=== PATIENT | female | born 1965 | race Caucasian/White ===

== ENCOUNTER → 2016-06-05 | Outpatient (CLI) | payer OTHER ==
[~2016-06-05] MED LIST: CALCIUM; MULT1CAP27; OMG1KC
--- OUTSIDE RECORDS SUMMARY | 2016-06-05 15:44 | XMS REPORT | Continuity of Care Document ---
Author Author [facility] Organization [facility] Address Unknown Phone Unavailable Allergies Active Description Code Type Severity Reaction Onset Reported/Identified Relationship to Patient Clinical Status Yes No Known Drug Allergies [id number] Drug Allergy Unknown N/ A 08/04/2010 Medications Problems Date Dx Coded Attending Type Code Diagnosis Diagnosed By 08/04/2010 Ot 883.0 08/04/2010 Ot E000.0 08/04/2010 Ot E849.7 08/04/2010 Ot E920.4 12/10/2011 Ot 625.8 05/17/2014 Ot V76.12 05/17/2014 Ot V76.12 05/17/2014 Ot V76.12 05/17/2014 Ot 285.9 05/17/2014 Ot 625.8 05/17/2014 Ot V72.63 05/17/2014 Ot V74.8 05/17/2014 Ot V76.12 05/17/2014 RACHELL SPRAGUE, PALMIRA Vargas Ot V76.12 06/02/2014 RACHELL SPRAGUE, PALMIRA Vargas Ot V76.12 01/09/2015 BRITTANY SPRAGUE, REVIN Weston Ot 535.40 01/09/2015 BRITTANY SPRAGUE, ERVIN Weston Ot 553.3 01/09/2015 BRITTANY SPRAGUE, ERVIN Weston Ot 562.10 01/09/2015 BRITTANY SPRAGUE, ERVIN Weston Ot 569.0 01/09/2015 ERVIN SOTO MD Ot V76.51 05/30/2015 Ot V76.12 05/30/2015 Ot V76.12 05/30/2015 Ot 285.9 05/30/2015 Ot 625.8 05/30/2015 Ot V72.63 05/30/2015 Ot V74.8 05/30/2015 Ot V76.12 05/30/2015 RACHELL SPRAGUE, PALMIRA Vargas Ot V76.12 05/30/2015 RACHELL SPRAGUE, PALMIRA Vargas Ot V76.12 05/30/2015 ERVIN SOTO MD Ot 787.20 05/30/2015 ERVIN SOTO MD Ot V72.84 05/30/2015 ERVIN SOTO MD Ot V76.51 Procedures Results Encounters ACCT No. Visit Date/Time Discharge Status Pt. Type Provider Facility Loc./Unit Complaint [id number] 01/09/2015 08:42:00 2014 11:35:00 [id number] 01/08/2015 05:36:00 2014 23:59:59 CLS Outpatient ERVIN SOTO MD [facility] PREOP [id number] 05/17/2014 10:45:00 2014 23:59:59 CLS Outpatient PALMIRA LOVETT MD [facility] RAD [id number] 02/17/2013 14:50:00 2012 23:59:59 CLS Outpatient PALMIRA LOVETT MD [facility] RAD [id number] 05/30/2015 10:11:00 ACT Outpatient PALMIRA LOVETT MD [facility] RAD [id number] 02/18/2012 11:08:00 Document Registration [id number] 12/10/2011 05:47:00 Document Registration [id number] 12/05/2011 15:35:00 Document Registration [id number] 01/30/2011 15:11:00 Document Registration [id number] 08/04/2010 19:16:00 Document Registration [id number] 2010 13:13:00 Document Registration [id number] 01/10/2009 14:30:00 Document Registration
--- NOTE | 2016-06-06 11:45 | Diagnostic Imaging Report ---
Bilateral screening mammogram. The current study was also evaluated with a Computer Aided Detection (CAD) system. INDICATION: Screening. No current complaints stated on the questionnaire. COMPARISON: 05/30/2015. FINDINGS: The breasts are composed of heterogeneously dense parenchyma which may decrease mammographic sensitivity. There is no mass, architectural distortion, or suspicious cluster of calcification. Allowing for technique and positional differences, no suspicious change is seen. IMPRESSION: Dense breasts with no definite change. ACR BI-RADS Category 2: Benign findings. Result letter will be mailed to the patient. Note: At least 10% of breast cancer is not imaged by mammography. Dictated by: Dictated on workstation # [id number]
== END ==
LOC: RAD 15:41
PROVIDERS: ATTEND Obstetrics & Gynecology
DX: Z12.31 Encounter for screening mammogram for malignant neoplasm of breast (principal)
CPT/HCPCS: 77067

== ENCOUNTER → 2017-06-10 | Outpatient (CLI) | payer OTHER ==
--- NOTE | 2017-06-10 10:08 | Diagnostic Imaging Report ---
INDICATION: Routine screening. COMPARISON: 06/05/2016 and 05/30/2015. TECHNIQUE: Screening digital mammography was performed bilaterally with a Computer Aided Detection (CAD) system. FINDINGS: Both breasts are heterogeneously dense, limiting the sensitivity of mammography. The parenchymal pattern is stable. No dominant mass or malignant appearing microcalcifications are seen. The axillae are unremarkable IMPRESSION: No mammographic features suspicious for malignancy are identified. ACR BI-RADS Category 2: Benign findings. Result letter will be mailed to the patient. Note: At least 10% of breast cancer is not imaged by mammography. Dictated by: Dictated on workstation # [id number]
== END ==
LOC: RAD 08:58
PROVIDERS: ATTEND Obstetrics & Gynecology
DX: Z12.31 Encounter for screening mammogram for malignant neoplasm of breast (principal)
CPT/HCPCS: 77067

== ENCOUNTER → 2018-06-15 | Outpatient (CLI) | payer OTHER ==
--- NOTE | 2018-06-16 18:14 | Diagnostic Imaging Report ---
EXAMINATION: Digital Mammogram bilateral screening with 3D tomosynthesis and computer-aided detection (CAD) system. INDICATION: Screening. COMPARISON: This study was compared to the prior exams of 06/10/2017, 06/05/2016, and 05/30/2015. At this time, there are no current complaints. FINDINGS: The fibroglandular tissue in both breasts is heterogeneously dense. This does limit the sensitivity of this exam. On the MLO view of the left breast in the mid portion of the breast, there is a suggestion of architectural distortion. This finding is not as striking on the tomographic views. Even so, I would recommend that a compression view of this portion of the left breast be obtained in the MLO projection as well as a true lateral view for further study. Ultrasound should also be performed. The right breast is unchanged. IMPRESSION: Additional mammographic views and ultrasound of the left breast would be recommended for further study. ACR BI-RADS Category 0: Incomplete. (Needs additional imaging evaluation). Result letter will be mailed to the patient. Note: At least 10% of breast cancer is not imaged by mammography. Dictated by: Dictated on workstation # [id number]
== END ==
LOC: RAD 15:19
PROVIDERS: ATTEND Obstetrics & Gynecology
DX: Z12.31 Encounter for screening mammogram for malignant neoplasm of breast (principal)
CPT/HCPCS: 77067

== ENCOUNTER → 2018-06-23 | Outpatient (CLI) | payer OTHER ==
--- NOTE | 2018-06-23 20:57 | Diagnostic Imaging Report ---
INDICATION: Left breast architectural distortion. Patient presents for additional views. Correlation is made with prior exam from 06/15/2018. Unilateral left 2D and 3D diagnostic mammography was performed including spot compression, MLO, and conventional 90-degree lateral views. The current study was also evaluated with a Computer Aided Detection (CAD) system. FINDINGS: Additional views fail to demonstrate a discrete mass. No definite architectural distortion is identified. No suspicious calcifications are seen. IMPRESSION: No suspicious abnormality is seen. Even so, sonographic interrogation from the 3-9 clock location of the left breast retroareolar region is recommended and will be performed today. ACR BI-RADS Category 0: Incomplete. (Needs additional imaging evaluation). Result letter will be mailed to the patient. Note: At least 10% of breast cancer is not imaged by mammography. Dictated by: Dictated on workstation # [id number]
--- NOTE | 2018-06-23 21:07 | Diagnostic Imaging Report ---
INDICATION: Left breast asymmetry. Study is performed for further evaluation. Correlation is made with diagnostic mammogram earlier same day. FINDINGS: Sonographic interrogation of the retroareolar left breast was performed from 3 to 9 o'clock location. No sonographic abnormality is seen. No solid or cystic mass is detected. IMPRESSION: No sonographic abnormality is seen. The patient may return to routine annual screening mammography. ACR BI-RADS Category 1: Negative. Dictated by: Dictated on workstation # [id number]
== END ==
LOC: RAD 08:38
PROVIDERS: ATTEND Obstetrics & Gynecology
DX: N64.89 Other specified disorders of breast (principal)
CPT/HCPCS: 76642

== ENCOUNTER → 2018-08-02 | Outpatient (CLI) | payer OTHER ==
--- NOTE | 2018-08-02 15:31 | Diagnostic Imaging Report ---
PROCEDURE: MRI lumbar spine. TECHNIQUE: Multiplanar, multisequence MRI of the lumbar spine was performed without contrast. INDICATION: Low back pain and right leg pain. COMPARISON: No prior studies are available for comparison. FINDINGS: Curvature and alignment of the lumbar spine is normal. Vertebral body heights are maintained. No acute compression fracture or geographic marrow lesion is seen. There is fairly normal height and signal intensity to the lumbar intervertebral discs. Conus is unremarkable at the L1 level. T12-L1: No central canal or neural foraminal stenosis is detected. L1-2: Mild ligamentous thickening is present, but no central canal or neural foraminal narrowing is seen. L2-3: There is ligamentous thickening and facet changes, but central canal and neural foramina are widely patent. L3-4: Ligamentous thickening and facet changes are present, but central canal and neural foramina are patent. L4-5: There is ligamentous thickening and facet changes with some flattening of the ventral thecal sac. Central canal remains patent. Very mild narrowing of the neural foramina bilaterally due to broad-based disc/osteophyte complexes noted. L5-S1: Central canal and neural foramina are widely patent. Paraspinous tissues are unremarkable. IMPRESSION: Mild generalized lumbar spondylosis. There appears to be mild bilateral neural foraminal narrowing at the L4-5 level, as described. No central canal stenosis or evidence of acute compression fracture is identified. Dictated by: Dictated on workstation # [id number]
== END ==
LOC: RAD 14:42
PROVIDERS: ATTEND Orthopaedic Surgery
DX: M47.816 Spondylosis without myelopathy or radiculopathy, lumbar region (principal)
CPT/HCPCS: 72148

== ENCOUNTER → 2019-07-06 | Outpatient (CLI) | payer OTHER ==
--- NOTE | 2019-07-06 10:27 | Diagnostic Imaging Report ---
INDICATION: Routine screening. COMPARISON: 06/15/2018 and 06/10/2017. TECHNIQUE: 2D and 3D bilateral screening mammography was performed with CAD. FINDINGS: Both breasts remain heterogeneously dense, limiting the sensitivity of mammography. The overall parenchymal pattern appears to be stable. No mass or malignant appearing microcalcifications are seen. The axillae are unremarkable. IMPRESSION: No mammographic features suspicious for malignancy are identified. ACR BI-RADS Category 1: Negative. Result letter will be mailed to the patient. Note: At least 10% of breast cancer is not imaged by mammography. Dictated by: Dictated on workstation # [id number]
== END ==
LOC: RAD 08:39
PROVIDERS: ATTEND Obstetrics & Gynecology
DX: Z12.31 Encounter for screening mammogram for malignant neoplasm of breast (principal)
CPT/HCPCS: 77067

== ENCOUNTER → 2020-07-10 | Outpatient (CLI) | payer OTHER | LOC: RAD 15:15 | PROVIDERS: ATTEND Obstetrics & Gynecology | DX: Z12.31 Encounter for screening mammogram for malignant neoplasm of breast (principal) | CPT/HCPCS: 77063; 77067 ==

== ENCOUNTER 2021-02-20 05:29 | Outpatient (RCR) | payer OTHER ==
[~2021-02-20] VITALS: Ht 160 cm; Wt 66.8 kg
[~2021-02-20 05:29] MED LIST changes: +ATOR10TA PO; +ESTR1TAB27 PO; +PROG100C11 PO
== END 2021-02-20 13:28 | disposition home or self-care (01) ==
LOC: PREOP 05:29
PROVIDERS: ATTEND Internal Medicine
DX: Z01.812 Encounter for preprocedural laboratory examination (principal); Z20.822 Contact with and (suspected) exposure to COVID-19
CPT/HCPCS: 87635

== ENCOUNTER 2021-02-22 09:09 | Day surgery (SDC) | payer OTHER ==
--- NOTE | 2021-02-21 16:44 | HISTORY AND PHYSICAL ---
DATE OF SERVICE: COLONOSCOPY AND EGD HISTORY AND PHYSICAL HISTORY: The patient is a 56-year-old white female who has had 3 episodes of nausea over the past several months. Last episode was a week ago. On 2 of them, she does not recall association with eating, but on the one where she noted dysphagia to pill following it after breakfast that did contain some sausage at the hospital. With this, she will also have associated diarrhea. She has not been aware of any melena or bright red blood per rectum and has had no hematemesis. Her nausea tends to resolve within an hour. She denies any heartburn type symptoms. Currently, she had undergone one other EGD, did reveal hiatal hernia without evidence for erosive esophagitis 7 years ago, has had no subsequent procedures. Her last colonoscopy, which revealed one hyperplastic polyp removed from the rectum and mild diverticular disease. PHYSICAL EXAMINATION: GENERAL: Reveals a white female, appears to be in no acute distress. HEENT: Unremarkable. VITAL SIGNS: Blood pressure 120/90 at the beginning of the interview, 118/76 at the end. HEENT: Unremarkable. Sclerae nonicteric. CHEST: Clear. CARDIOVASCULAR: Regular rate and rhythm without murmur, S3 or S4. ABDOMEN: Soft, supple. Mild epigastric discomfort to palpation is present without rebound or guarding. No right upper quadrant pain to palpation is noted. Harrison sign is negative. No other areas of tenderness noted in the abdomen. Bowel sounds positive. EXTREMITIES: Reveal no cyanosis, clubbing or edema. ASSESSMENT AND PLAN: For further investigation of epigastric pain and dysphagia with some nausea and vomiting, the patient is being set up for diagnostic EGD. Due to diarrhea and past polyp, the patient is being set up for colonoscopy. Prep instructions with Suprep kit were given and questions answered. Job ID: [id number] DocumentID: [id number] Dictated Date: 02/13/2021 15:37:57 Referral Specialist Date: 02/13/2021 16:16:43 Dictated By: ERVIN SOTO MD
[~2021-02-22] VITALS: Ht 160 cm; Wt 66.8 kg
[2021-02-22] VITALS (7 sets, daily range): BP systolic 122–155; BP diastolic 66–84
[2021-02-22] MEDS ORDERED: LACTATED RINGERS 1,000 ML IV ONE (09:23)
[2021-02-22] MEDS ORDERED: LACTATED RINGERS 1,000 ML IV STA (09:38)
[2021-02-22] MEDS ORDERED: HURRICAINE EXT TUBE (BENZOCAINE) XX PRN (09:45)
[2021-02-22] MEDS ORDERED: LIDOCAINE JELLY 2% 6 ML SYRINGE MM PRN (09:45)
[2021-02-22] MEDS ORDERED: proPOfol 200 MG/20 ML (DIPRIVAN) VIAL IV ONE ×2 (10:07→10:50)
[2021-02-22] MEDS ORDERED: MIDAZOLAM 2 MG/2 ML (VERSED) VIAL ONE (10:07)
--- NOTE | 2021-02-22 13:09 | Anesthesia-General Post-Op ---
MAC Patient Condition Mental Status/LOC: Same as Preop Cardiovascular: Satisfactory Nausea/Vomiting: Absent Respiratory: Satisfactory Pain: Controlled Complications: Absent Post Op Complications Complications None Follow Up Care/Instructions Patient Instructions None needed. Anesthesiology Discharge Order Discharge Order Patient is doing well, no complaints, stable vital signs, no apparent adverse anesthesia problems. No complications reported per nursing. ELVIN GOLDBERG CRNA Feb 22, 2021 13:09
--- NOTE | 2021-02-22 18:56 | OPERATIVE REPORT ---
DATE OF SERVICE: PANENDOSCOPY SUMMARY INDICATION FOR THE PROCEDURE: Panendoscopy was performed for evaluation of intermittent nausea with dysphagia with a screening colonoscopy. DESCRIPTION OF PROCEDURE: The patient was placed in the left lateral decubitus position. The endoscope was inserted in the oral cavity and under direct visualization, esophagus was intubated. The endoscope was passed down the esophagus through stomach and second portion of the duodenum. A careful inspection was made as the endoscope was withdrawn. FINDINGS: Proximal, mid and distal esophagus were unremarkable except for the fact that there is a small hiatal hernia present with patency of the lower esophageal sphincter. The Z line is distinct. There is no evidence to suggest Sanford's change. No evidence for erosive esophagitis or obstruction. The cardia of the stomach was unremarkable. Several small fundal polyps were noted. There were some linear antral erythema without erosion or ulceration noted. A biopsy was obtained and submitted for Helicobacter and histopathology evaluation. The pylorus, pyloric channel, duodenal bulb and second portion of the duodenum as well as ampulla were unremarkable. ASSESSMENT: Small hiatal hernia is present with evidence for lower esophageal sphincter laxity. There is no evidence for erosive esophagitis or obstruction. Mild antral erythema was present. Biopsies are pending for Helicobacter and histopathology. Several small fundal appearing polyps were noted in an individual who has been on chronic proton pump inhibitor therapy. No other abnormalities noted on today's upper endoscopy. Prior to undergoing colonoscopy, digital rectal evaluation was performed. Anal sphincter tone was normal and the perianal reflexes intact. No abnormalities were noted on digital inspection of anal canal or distal rectal vault. The colonoscope was then inserted into the rectum and under direct visualization advanced to cecum. The cecum was identified by identification of ileocecal valve and cecal strap. Photographic documentation was obtained. Quality of prep was good. FINDINGS: There was no evidence for internal or external hemorrhoids and the rectum was unremarkable. Present at the rectosigmoid junction was a diminutive hyperplastic-appearing polyp. It was biopsied and submitted for histopathology. Present in the distal sigmoid colon was a similar polyp that was removed, but not submitted. Several small sigmoid diverticulum were present without evidence for diverticulitis. The descending colon, splenic flexure, transverse colon, hepatic flexure, ascending colon and cecum were unremarkable. ASSESSMENT: 1. Mild diverticular disease confined to the sigmoid colon was present without evidence for diverticulitis. 2. One diminutive hyperplastic-appearing polyp was removed from the rectosigmoid junction. As long as there are no surprise on histopathology report, would advocate consideration for repeat surveillance colonoscopy in 10 years. Job ID: [id number] DocumentID: [id number] Dictated Date: 02/22/2021 12:23:37 Utility Tech Date: 02/22/2021 18:54:20 Dictated By: ERVIN SOTO MD
--- NOTE | 2021-02-26 15:49 | Physician Query Clarification ---
YOSELIN BERNAL 02/26/21 1549: [id number] Proc Desc BodyOP Admission Canned Text Admission Date: Discharge Date: Procedures Procedures Performed Colonoscopy-biopsy of rectosigmoid polyp, sigmoid polyp removed but not sent to path Body of the Operative/Procedure Report: There is no detailed documentation specifying a manner in which second polyp was removed. Contract Engineer Note Note From Contract Engineer Please remember a lack of response to the above will prompt a phone page by CDI/Coding staff. In responding to this query, please exercise your independent professional judgment. The purpose of this communication is to more accurately reflect the complexity of your patients condition. The fact that a question is asked does not imply that any particular answer is desired or expected. Thank you for your timely response to this clarification. Requestors name: Yoselin THIS PHYSICIAN QUERY FORM IS A PERMANENT PART OF THE MEDICAL RECORD ERVIN SOTO MD 02/28/21 1728: [id number] Proc Desc BodyOP Physician Response Details: Detailed desc below Explanation Clinical Findings Removed via cold biopsy forceps YOSELIN BERNAL Feb 26, 2021 15:49 ERVIN SOTO MD Feb 28, 2021 17:28
== END 2021-02-22 12:40 | disposition home or self-care (01) ==
LOC: ENDO 09:09
PROVIDERS: ATTEND Internal Medicine
DX: Z12.11 Encounter for screening for malignant neoplasm of colon (principal); K62.1 Rectal polyp; K57.30 Diverticulosis of large intestine without perforation or abscess without bleeding; K63.5 Polyp of colon; K44.9 Diaphragmatic hernia without obstruction or gangrene; K31.7 Polyp of stomach and duodenum

== ENCOUNTER → 2021-07-12 | Outpatient (CLI) | payer OTHER ==
--- NOTE | 2021-07-15 08:41 | Diagnostic Imaging Report ---
INDICATION: Routine screening. Comparison is made prior mammogram 07/10/2020 and 07/06/2019. 2-D and 3-D bilateral screening mammography was performed with CAD. Both breasts are heterogeneously dense, limiting the sensitivity of mammography. The parenchymal pattern is stable. No mass or malignant-appearing microcalcifications are seen. Occasional benign calcifications are noted. Axillae are unremarkable. IMPRESSION: No mammographic features suspicious for malignancy are identified. ACR BI-RADS Category 2: Benign findings. Result letter will be mailed to the patient. Note: At least 10% of breast cancer is not imaged by mammography. BI-RADS Category 2 Dictated by: Dictated on workstation # [id number]
== END ==
LOC: RAD 15:00
PROVIDERS: ATTEND Obstetrics & Gynecology
DX: Z12.31 Encounter for screening mammogram for malignant neoplasm of breast (principal)
CPT/HCPCS: 77063; 77067

== ENCOUNTER 2021-08-26 05:32 | Outpatient (CLI) | payer OTHER ==
[~2021-08-26] VITALS: Ht 160 cm; Wt 65.9 kg
[2021-08-26] MEDS ORDERED: FAMO10TA43 PO (13:14)
[2021-08-26] MEDS ORDERED: FERR325T18 PO (13:14)
== END 2021-08-26 13:17 ==
LOC: PREOP 05:32
PROVIDERS: ATTEND Obstetrics & Gynecology
DX: Z01.812 Encounter for preprocedural laboratory examination (principal); N95.0 Postmenopausal bleeding

== ENCOUNTER 2021-09-02 07:24 | Day surgery (SDC) | payer OTHER ==
[~2021-09-02] VITALS: Ht 160 cm; Wt 65.9 kg
[2021-09-02] VITALS (11 sets, daily range): BP systolic 127–139; BP diastolic 72–94
[~2021-09-02 07:24] MED LIST changes: +FAMO10TA43 PO; +FERR325T18 PO
[2021-09-02] MEDS ORDERED: BUPIVACAINE 0.25% 10 ML (SENSORCAINE) VIAL ONE (07:29)
[2021-09-02] MEDS: LACTATED RINGERS 1,000 ML IV PRN ×2 (07:50→09:15)
[2021-09-02 08:04] LABS: BASOPHILS # (AUTO) 0.1 10^3/uL (0.0-0.1); BASOPHILS % (AUTO) 1 % (0-10); EOSINOPHILS # (AUTO) 0.1 10^3/uL (0.0-0.3); EOSINOPHILS % (AUTO) 1 % (0-10); HEMATOCRIT 42 % (35-52); HEMOGLOBIN 13.5 g/dL (11.5-16.0); LYMPHOCYTES # (AUTO) 1.4 10^3/uL (1.0-4.0); LYMPHOCYTES % (AUTO) 20 % (12-44); MEAN CORPUSCULAR HEMOGLOBIN 28 pg (25-34); MEAN CORPUSCULAR HGB CONC 33 g/dL (32-36); MEAN CORPUSCULAR VOLUME 85 fL (80-99); MEAN PLATELET VOLUME 9.5 fL (9.0-12.2); MONOCYTES # (AUTO) 0.7 10^3/uL (0.0-1.0); MONOCYTES % (AUTO) 10 % (0-12); NEUTROPHILS # (AUTO) 4.7 10^3/uL (1.8-7.8); NEUTROPHILS % (AUTO) 69 % (42-75); PLATELET COUNT 318 10^3/uL (130-400); WHITE BLOOD COUNT 6.9 10^3/uL (4.3-11.0)
[2021-09-02] MEDS ORDERED: fentaNYL INJ 100 MCG/2 ML AMP ONE (08:47)
[2021-09-02] MEDS ORDERED: MIDAZOLAM 2 MG/2 ML (VERSED) VIAL ONE (08:48)
--- NOTE | 2021-09-02 09:05 | History & Physical-Surgical ---
HPO-Surgical History of Present Illness Chief Complaint: PMB on HRT Diagnosis/Surgical Indication: post menopausal bleeding Procedure: DILATION AND CURETTAGE HYSTEROSCOPY Date of Surgery: September 02, 2021 Weight (Pounds): 135 Weight (Ounces): 0.0 Height (Feet): 5 Height (Inches): 3.00 Allergies and Home Medications Allergies Coded Allergies: No Known Drug Allergies (Unverified , 08/26/21) Patient Home Medication List Home Medication List Reviewed: Yes Atorvastatin Calcium (Lipitor) 10 Mg Tablet, 10 MG PO HS, (Reported) Entered as Reported by: LAKISHA SWAN on 02/18/21 0846 Estradiol (Estrace Tablet) 1 Mg Tablet, 1 MG PO DAILY, (Reported) Entered as Reported by: LAKISHA SWAN on 02/18/21 0846 Famotidine (Pepcid AC) Unknown Strength Tablet, Unknown Dose PO, (Reported) Entered as Reported by: NEGRO WAGNER on 08/26/21 1314 Ferrous Sulfate (Ferrous Sulfate) 325 Mg (65 Mg Iron) Tablet, 325 MG PO DAILY, (Reported) Entered as Reported by: NEGRO WAGNER on 08/26/21 1314 Progesterone,Micronized (Progesterone) 100 Mg Capsule, 100 MG PO DAILY, (Reported) Entered as Reported by: LAKISHA SWAN on 02/18/21 0846 Past Rbfhqzh-Pfygau-Vkefih Hx Patient Social History Marrital Status: Smoking Status: Never a Smoker 2nd Hand Smoke Exposure: No Recent Hopitalizations: No Seasonal Allergies Seasonal Allergies: No Surgeries Yes (HYSTEREOSCOPY/D@C 2011/COLONOSCOPY/EGD) Respiratory No Cardiovascular Yes High Cholesterol Neurological No Reproductive System Hx Reproductive Disorders: Yes (UTERINE MASS) Genitourinary No Gastrointestinal Yes Gastroesophageal Reflux Musculoskeletal No Endocrine History of Endocrine Disorders: No HEENT History of HEENT Disorders: Yes (GLASSES, EYE SURGERY NASOLAGRAMUL TUBE ) Cancer No Psychosocial History of Psychiatric Problem: No Integumentary History of Skin or Integumenta: No Blood Transfusions History of Blood Disorders: No Exam Vital Signs Vital Signs 09/02/21 07:30 Temp 36.0 Pulse 62 Resp 18 B/P (MAP) 139/84 (102) Pulse Ox 99 O2 Delivery Room Air Capillary Refill : Labs Laboratory Tests Test 09/02/21 07:45 Range/Units White Blood Count 6.9 4.3-11.0 10^3/uL Red Blood Count 4.89 3.80-5.11 10^6/uL Hemoglobin 13.5 11.5-16.0 g/dL Hematocrit 42 35-52 % Mean Corpuscular Volume 85 80-99 fL Mean Corpuscular Hemoglobin 28 25-34 pg Mean Corpuscular Hemoglobin Concent 33 32-36 g/dL Red Cell Distribution Width 14.1 10.0-14.5 % Platelet Count 318 130-400 10^3/uL Mean Platelet Volume 9.5 9.0-12.2 fL Immature Granulocyte % (Auto) 0 % Neutrophils (%) (Auto) 69 42-75 % Lymphocytes (%) (Auto) 20 12-44 % Monocytes (%) (Auto) 10 0-12 % Eosinophils (%) (Auto) 1 0-10 % Basophils (%) (Auto) 1 0-10 % Neutrophils # (Auto) 4.7 1.8-7.8 10^3/uL Lymphocytes # (Auto) 1.4 1.0-4.0 10^3/uL Monocytes # (Auto) 0.7 0.0-1.0 10^3/uL Eosinophils # (Auto) 0.1 0.0-0.3 10^3/uL Basophils # (Auto) 0.1 0.0-0.1 10^3/uL Immature Granulocyte # (Auto) 0.0 0.0-0.1 10^3/uL General Appearance: Alert, Oriented X3 HEENT: Atraumatic Respiratory: Clear to Auscultation Cardiovascular: Regular Rate Abdominal: Normal Bowel Sounds, Soft Extremities: No Cyanosis Skin: No Breakdown Neuro: Normal Gait Psych/Mental Status: Mental Status NL Assessment/Plan Assessment and Plan Diagnosis: 56 yo female with PMB ON HRT therapy P: Hysteroscopy and D and C. Admission Diagnosis PMB Admission Status: Other (Same Day Surgery) ALESSANDRA CASPER DO September 02, 2021 09:05
[2021-09-02] MEDS ORDERED: LIDOCAINE PF 2% 5 ML (XYLOCAINE) VIAL ONE (09:08)
[2021-09-02] MEDS ORDERED: proPOfol 200 MG/20 ML (DIPRIVAN) VIAL IV ONE (09:08)
[2021-09-02] MEDS ORDERED: ONDANSETRON 4 MG/2 ML (SDV) Z0FRAN IVP PRN ×2 (09:15→09:45)
[2021-09-02] MEDS ORDERED: D5 LR IV SOLUTION 1,000 ML IV SCH (09:15)
[2021-09-02] MEDS ORDERED: KETOROLAC 30 MG/ML VIAL IVP ONE (09:15)
[2021-09-02] MEDS ORDERED: SEVOFLURANE (ULTANE) 15 ML INHAL SOLN ONE (09:17)
[2021-09-02] MEDS ORDERED: IBUP-1773 PO (09:17)
[2021-09-02] MEDS ORDERED: KETOROLAC 30 MG/ML VIAL ONE (09:28)
--- NOTE | 2021-09-02 09:36 | Anesthesia-General Post-Op ---
General Patient Condition Mental Status/LOC: Same as Preop Cardiovascular: Satisfactory Nausea/Vomiting: Absent Respiratory: Satisfactory Pain: Controlled Complications: Absent Post Op Complications Complications None Follow Up Care/Instructions Patient Instructions None needed. Anesthesia/Patient Condition Patient Condition Patient is doing well, no complaints, stable vital signs, no apparent adverse anesthesia problems. No complications reported per nursing. ELVIN GOLDBERG CRNA September 02, 2021 09:36
[2021-09-02] MEDS ORDERED: fentaNYL INJ 100 MCG/2 ML AMP IVP ONE (09:45)
[2021-09-02] MEDS ORDERED: PROMETHAZINE INJ 25 MG/ML (PHENERGAN) AMP IVP ONE (09:45)
[2021-09-02] MEDS ORDERED: morphine INJ 10 MG/ML 1ML (SYR OR VIAL) IVP ONE (09:45)
--- NOTE | 2021-09-02 14:15 | OPERATIVE REPORT ---
DATE OF SERVICE: 09/02/2021 PREOPERATIVE DIAGNOSES: 1. A 56-year-old female with postmenopausal bleeding. 2. The patient actively on hormone replacement therapy. POSTOPERATIVE DIAGNOSES: 1. A 56-year-old female with postmenopausal bleeding. 2. The patient actively on hormone replacement therapy. PROCEDURE: D and C, hysteroscopy. SURGEON: Alessandra Casper DO ANESTHESIA: LMA general. ESTIMATED BLOOD LOSS: Minimal. URINE OUTPUT: 200 mL drained at start of the procedure. FLUIDS: 800 mL lactated Ringer's solution. FINDINGS: Grossly normal-appearing external female genitalia: Normal-appearing vagina mucosa, normal-appearing cervix and normal-appearing endometrial cavity with bilateral patent tubal ostia. SPECIMEN SENT: Endometrial curettings. INDICATIONS FOR PROCEDURE: This 56-year-old female is a patient who had sought care in my office earlier this year for well woman visit. She was actually on hormone replacement therapy at that point reported that she had an episode of postmenopausal bleeding approximately 6 to 8 months ago; however, has not had any bleeding since. The patient then after that appointment did have another episode of postmenopausal bleeding. I discussed with the patient any undiagnosed bleeding on hormone replacement therapy. Post-menopausal, we should consider endometrial sampling, and possible even hysteroscopy. Risks of procedure were discussed with the patient in detail, indications and alternatives. After everything was discussed with the patient, consent was obtained in the preoperative area, the patient was taken to the operating room. OPERATIVE REPORT IN DETAIL: Once in the operating room, anesthesia was found to be adequate. She was placed in dorsal lithotomy position, prepped and draped in normal sterile fashion. Timeout was performed. The bladder was drained using straight catheterization. A weighted speculum inserted to the patient's vagina. Right angle retractor was used to visualize the cervix, which was grasped at 12 o'clock position using a long Allis clamp. I then performed paracervical block at 3 and 9 o'clock positions on the cervix using 0.25% Marcaine with 5 mL were injected into each site. Care was taken to aspirate for injecting. Once this was done, I then gently sound to sound the uterine cavity, depth was found to be 8 cm. I then gently dilated cervix using Hanks dilators to allow placement of the hysteroscope. Once the hysteroscope is activated using a [employer] fluid management system, normal saline as my visual medium, I advanced the hysteroscope into the uterus. I am able to visualize all of the normal uterine anatomy as defined in my findings above. I then removed the hysteroscope and then proceeded with dilated the cervix to a maximum dilatation approximately 1 cm, at which point I performed a gentle curettage of the endometrial cavity and collect this tissue as endometrial curettings. I then removed all instruments from the patient's vagina. The patient tolerated the procedure well and sent to recovery area in stable condition. Lap and sponge counts were correct at the end of procedure. Instrument counts correct as well. Job ID: [id number] DocumentID: [id number] Dictated Date: 09/02/2021 09:43:02 Plastic Outfitter Date: 09/02/2021 14:14:49 Dictated By: ALESSANDRA CASPER DO
== END 2021-09-02 11:23 | disposition home or self-care (01) ==
LOC: SDC 07:24
PROVIDERS: ATTEND Obstetrics & Gynecology
DX: N95.0 Postmenopausal bleeding (principal); N85.8 Other specified noninflammatory disorders of uterus; Z79.890 Hormone replacement therapy
CPT/HCPCS: 36415; 85025; 86850; 86900; 86901; 87081; 88305

== ENCOUNTER → 2022-06-23 | Outpatient (CLI) | payer OTHER ==
[~2022-06-23] MED LIST changes: +IBUP-1773 PO
--- NOTE | 2022-06-23 15:56 | Diagnostic Imaging Report ---
INDICATION: Left axillary fullness. FINDINGS: Sonographic interrogation of the upper outer left breast and left axilla was performed at area of pain. There appears to be a fatty lymph node in the left axilla measuring 1.7 x 1.0 x 2.0 cm. No other masses are detected. IMPRESSION: Fatty lymph node in the left axilla. No concerning sonographic finding is identified. ACR BI-RADS Category 2: Benign findings. Dictated by: Dictated on workstation # [id number]
--- NOTE | 2022-06-24 11:00 | Diagnostic Imaging Report ---
INDICATION: Swelling and tenderness in the lateral left breast and left axilla. COMPARISON: Correlation is made with the prior mammograms of 07/12/2021 and 07/10/2020. TECHNIQUE: 2D and 3D bilateral diagnostic mammography was performed with CAD. FINDINGS: Both breasts are heterogeneously dense, limiting the sensitivity of mammography. No mass or malignant-appearing microcalcifications are seen. There are occasional benign calcifications. The axillae are unremarkable. IMPRESSION: No mammographic features suspicious for malignancy are identified. Even so, sonographic interrogation of the area of fullness and pain in the lateral left breast and left axilla is recommended and will be performed today. ACR BI-RADS Category 0: Incomplete. (Needs additional imaging evaluation). Result letter will be mailed to the patient. Note: At least 10% of breast cancer is not imaged by mammography. Dictated by: Dictated on workstation # [id number]
== END ==
LOC: RAD 14:15
PROVIDERS: ATTEND Obstetrics & Gynecology
DX: N63.20 Unspecified lump in the left breast, unspecified quadrant (principal); N64.4 Mastodynia
CPT/HCPCS: 76642; 77066; G0279; 77062

== ENCOUNTER → 2022-06-26 | Outpatient (CLI) | payer OTHER | LOC: CARD 12:35 | PROVIDERS: ATTEND Internal Medicine | DX: E78.5 Hyperlipidemia, unspecified (principal) | CPT/HCPCS: 93005 ==

== ENCOUNTER → 2022-07-18 | Outpatient (CLI) | payer OTHER ==
--- NOTE | 2022-07-18 16:37 | Diagnostic Imaging Report ---
Clinical indications: Patient with family history of heart disease, stroke. Comparison: None Exam: Real-time ultrasound carotid Doppler duplex imaging is performed bilaterally with multiple real-time grayscale images obtained in various projections. Additional spectral analysis and color Doppler duple images were also obtained. Peak systolic velocity, ICA/CCA peak systolic ratio, spectral analysis, and vascular morphology are studied. Findings: ARTERY VELOCITY Right Left CCA 0.68 m/s 0.76 m/s ICA 0.83 m/s 0.92 m/s ECA 0.74 m/s 0.81 m/s ICA/CCA 1.22 1.20 VERT.ART Antegrade Antegrade There is very minimal atherosclerotic disease. Impression: There is no grayscale or Doppler evidence of significant vascular stenosis. Dictated by: Dictated on workstation # [id number]
== END ==
LOC: RAD 15:15
PROVIDERS: ATTEND Internal Medicine
DX: Z82.49 Family history of ischemic heart disease and other diseases of the circulatory system (principal)
CPT/HCPCS: 93880